=== PATIENT | male | born 1965 | race Caucasian/White ===

== ENCOUNTER 2016-07-18 15:44 | Emergency (ER) | payer MEDICAID ==
[2016-07-18 15:51] VITALS: RESP 16
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
[2016-07-18 17:28] VITALS: BP 145/95; PULSE 58; TEMP 97.9; O2SAT 94
== END 2016-07-18 17:28 | disposition home or self-care (01) ==
DX: S43.101A Unspecified dislocation of right acromioclavicular joint, initial encounter (principal); V18.2XXA Unspecified pedal cyclist injured in noncollision transport accident in nontraffic accident, initial encounter

== ENCOUNTER → 2016-11-13 | Outpatient (CLI) | payer MEDICAID ==
[~2016-11-13] MED LIST: GADOBUTROL 10 ML VIAL IVP ONE
== END ==
LOC: FIMAGING 12:14
DX: D35.2 Benign neoplasm of pituitary gland (principal)
CPT/HCPCS: A9585

== ENCOUNTER → 2017-02-23 | Outpatient (CLI) | payer MEDICAID ==
[~2017-02-23] MED LIST changes: -GADOBUTROL 10 ML VIAL IVP ONE; +IOPAMIDOL (ISOVUE-300) 100 ML BTL ONE
== END ==
LOC: FIMAGING 14:56
PROVIDERS: ATTEND Internal Medicine Infectious Disease
DX: R53.83 Other fatigue (principal); R63.4 Abnormal weight loss; R10.32 Left lower quadrant pain; R93.2 Abnormal findings on diagnostic imaging of liver and biliary tract
CPT/HCPCS: Q9967

== ENCOUNTER → 2017-03-01 | Outpatient (CLI) | payer MEDICAID | LOC: BRMIMAGING 10:31 | PROVIDERS: ATTEND Internal Medicine | DX: M85.80 Other specified disorders of bone density and structure, unspecified site (principal); Z79.52 Long term (current) use of systemic steroids ==

== ENCOUNTER → 2017-03-12 | Outpatient (CLI) | payer MEDICAID | LOC: FIMAGING 14:47 | PROVIDERS: ATTEND Internal Medicine | DX: M50.31 Other cervical disc degeneration, high cervical region (principal); M47.812 Spondylosis without myelopathy or radiculopathy, cervical region; M48.02 Spinal stenosis, cervical region; M53.84 Other specified dorsopathies, thoracic region; M51.24 Other intervertebral disc displacement, thoracic region; M51.86 Other intervertebral disc disorders, lumbar region; M51.36 Other intervertebral disc degeneration, lumbar region; M51.26 Other intervertebral disc displacement, lumbar region ==

== ENCOUNTER 2017-06-22 12:15 | Emergency (ER) | payer OTHER, MEDICAID ==
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
[2017-06-22] MEDS ORDERED: ONDANSETRON 4 MG/2 ML VIAL IVP ONE (13:31)
[2017-06-22] MEDS ORDERED: NS 1,000 ML IV ONE ×3 (13:31→18:27)
[2017-06-22] MEDS ORDERED: NALOXONE HCL 0.4 MG/ML INJ IVP ONE (13:31)
[2017-06-22] MEDS ORDERED: NALOXONE HCL 0.4 MG/ML INJ ONE (13:31)
[2017-06-22 13:38] LABS: PLATELET COUNT 234 10^3/uL (150-400)
[2017-06-22] MEDS ORDERED: NALOXONE HCL 2 MG/2 ML SYR IVP ONE (13:42)
[2017-06-22] MEDS ORDERED: IOPAMIDOL (ISOVUE-300) 100 ML BTL ONE ×2 (13:52→14:41)
[2017-06-22] MEDS ORDERED: LORazepam 2 MG/ML INJ ONE (14:22)
[2017-06-22] MEDS ORDERED: LORazepam 2 MG/ML INJ IVP ONE (14:48)
[2017-06-22] MEDS ORDERED: MIDAZOLAM 10 MG/2 ML VIAL ONE (14:51)
[2017-06-22] MEDS ORDERED: MIDAZOLAM 2 MG/2 ML VIAL IVP ONE (15:12)
[2017-06-22] MEDS ORDERED: NS 1,000 ML IV SCH (18:30)
[2017-06-22 19:33] VITALS: BP 137/79
== END 2017-06-22 19:39 | disposition home or self-care (01) ==
LOC: EDUNIT#
DX: S00.81XA Abrasion of other part of head, initial encounter (principal); F19.10 Other psychoactive substance abuse, uncomplicated; V49.69XA Unspecified car occupant injured in collision with other motor vehicles in traffic accident, initial encounter; Y92.410 Unspecified street and highway as the place of occurrence of the external cause; Y99.8 Other external cause status; Y93.89 Activity, other specified
CPT/HCPCS: 80305; 96374; G0480; J2060; J2250; J2310; J2405; Q9967